=== PATIENT | male | born 2000 | race African-American/Black ===

== ENCOUNTER 2025-06-23 23:34 | Emergency (ER) | payer OTHER ==
[~2025-06-23] VITALS: Ht 175.3 cm; Wt 95.5 kg
[2025-06-24] MEDS ORDERED: NAPR-837 PO (04:38)
[2025-06-24] MEDS: NAPROXEN 250 MG TAB PO ONE (04:46)
[2025-06-24 04:53] VITALS: BP 120/75; TEMP 97.1; O2SAT 98
== END 2025-06-24 04:59 | disposition home or self-care (01) ==
LOC: M ED 23:34
DX: S93.402A Sprain of unspecified ligament of left ankle, initial encounter (principal); Y92.019 Unspecified place in single-family (private) house as the place of occurrence of the external cause; Y93.72 Activity, wrestling; Y99.9 Unspecified external cause status; F17.290 Nicotine dependence, other tobacco product, uncomplicated; F10.10 Alcohol abuse, uncomplicated; Z79.899 Other long term (current) drug therapy